=== PATIENT | female | born 1980 | race Caucasian/White ===

== ENCOUNTER 2023-01-07 09:17 | Outpatient (CLI) | payer MEDICAID, SELFPAY ==
--- NOTE | 2023-01-07 09:15 | CRLHL7_ITS ---
For Patients: As a result of the Century Cures Act, medical imaging exams and procedure reports are released immediately into your electronic medical record. You may view this report before your referring provider. If you have questions, please contact your health care provider. INDICATION: Whiplash injury. COMPARISON: None. TECHNIQUE: Sagittal T1, T2, and STIR sequences. Axial T2/gradient sequences. FINDINGS: Normal vertebral body facet alignment. No fractures. No vertebral body loss of height. No spondylolisthesis. No ligamentous injury. Normal marrow signal. No suspicious osseous lesions. Normal cord signal. No intradural mass or lesion. C1-2: No spinal canal narrowing. C2-3: No spinal canal neural foraminal narrowing. C3-4: No narrowing of the spinal canal. No neural foraminal narrowing. C4-5: No spinal canal or neural foraminal narrowing. C5-6: Disc generation and posterior disc bulging disc osteophyte complex. Mild narrowing of spinal canal. Moderate narrowing of the right neural foramen. No narrowing of the left neural foramen. C6-7: Mild disc degeneration. No spinal canal or neural foraminal narrowing. C7-T1: No spinal canal or neural foraminal narrowing. No spinal canal or neural foraminal narrowing at the remaining levels of the cervical spine. IMPRESSION: 1. Normal alignment. No fractures. 2. No ligamentous injury. 3. Normal cord signal. 4. Mild cervical spondylosis. 5. At C5-6, mild narrowing of the spinal canal. Moderate narrowing of the right neuroforamen. 6. No spinal canal or neural foraminal narrowing at the remaining levels Dictated by Carlos Reddy MD @ 01/07/2023 4:42:26 PM (Electronically Signed)
--- NOTE | 2023-01-07 10:00 | CRLHL7_ITS ---
For Patients: As a result of the Century Cures Act, medical imaging exams and procedure reports are released immediately into your electronic medical record. You may view this report before your referring provider. If you have questions, please contact your health care provider. INDICATION: Whiplash injury. COMPARISON: None. TECHNIQUE: Sagittal T1, T2, and STIR sequences. Axial T2/gradient sequences. FINDINGS: Normal vertebral body facet alignment. No fractures. No vertebral body loss of height. No spondylolisthesis. No ligamentous injury. Normal marrow signal. No suspicious osseous lesions. Normal cord signal. No intradural mass or lesion. T4-5: Small central disc protrusion with no spinal canal or neural foraminal narrowing. T6-7: Disc degeneration with a small right paracentral disc protrusion measuring approximately 3 mm in short axis. Otherwise, no spinal canal or neural foraminal narrowing. T7-8: Disc degeneration. Left paracentral disc protrusion measures approximately 3 mm in short axis. Effacement of the ventral thecal sac and flattening of the ventral aspect of the cord. Mild narrowing of spinal canal. No neural foraminal narrowing. No spinal canal or neural foraminal narrowing at the remaining levels of the thoracic spine. IMPRESSION: 1. Normal alignment. No fractures 2. Normal cord signal. 3. At T6-7, small right paracentral disc protrusion. Otherwise, no spinal canal or neural foraminal narrowing. 4. At T7-8, disc degeneration. Left paracentral disc protrusion. Mild narrowing of spinal canal. No neural foraminal narrowing. 5. No spinal canal or neural foraminal narrowing at the remaining levels Dictated by Carlos Reddy MD @ 01/07/2023 4:50:40 PM (Electronically Signed)
== END 2023-01-07 09:18 | disposition home or self-care (01) ==
PROVIDERS: Visit Provider Family Medicine
DX: M54.2 Cervicalgia (principal); M47.892 Other spondylosis, cervical region; M50.222 Other cervical disc displacement at C5-C6 level; M51.34 Other intervertebral disc degeneration, thoracic region; S13.4XXA Sprain of ligaments of cervical spine, initial encounter; M54.6 Pain in thoracic spine; M54.12 Radiculopathy, cervical region
CPT/HCPCS: 72141; 72146